=== PATIENT | female | born 1950 | race African-American/Black ===

== ENCOUNTER 2017-11-02 09:39 | Outpatient (CLI) | payer MEDICARE ==
--- NOTE | 2017-11-02 11:18 | RAD ---
RIGHT KNEE 3 VIEWS: Date: 11/02/17 HISTORY: Right knee pain. FINDINGS: There are degenerative changes, most prominent in the medial tibiofemoral joint space. No fracture, d islocation, or bony destruction is seen. No joint effusions are identified. IMPRESSION: Right knee osteoarthritis. POS: [facility]
== END 2017-11-02 09:40 | disposition home or self-care (01) ==
LOC: SCSRAD 09:39
PROVIDERS: ATTEND Family Medicine
DX: M17.11 Unilateral primary osteoarthritis, right knee (principal)